=== PATIENT | female | born 1990 | race African-American/Black ===

== ENCOUNTER 2018-09-19 09:17 | Inpatient (IN) ==
[2018-09-19 10:22] LABS: Apearance,Urine CLOUDY (Clear); Bilirubin,Urine Negative (Negative); Blood, Urine Negative (Negative); Glucose,Urine (UA) Negative (Negative); Ketones,Urine Negative (Negative); Mucus,Urine Many /LPF (Occasional); Nitrite,Urine Negative (Negative); Protein,Urine 30 MG/DL; RBC,Urine 12 /HPF (0-4); Squamous Epithelial Cell,Urine Few /HPF (0-10); Urine Color Amber (Yellow); Urine Specific Gravity 1.017 (1.001-1.035); WBC,Urine 162 /HPF (0-6)
[2018-09-19] MEDS: BETAMETH SODIUM PHOS/ACETATE 30 MG/5 ML VIAL IM SCH (10:58)
[2018-09-19] MEDS ORDERED: BUTORPHANOL 2 MG/ML VIAL IV PRN (13:42)
[2018-09-19] MEDS ORDERED: MAGNESIUM SULF RIDER 100 ML IV ONE (13:44)
[2018-09-19] MEDS: LACTATED RINGERS 1,000 ML IV SCH (14:34)
[2018-09-19 14:35] LABS: Basophils % 0.1 % (0.0-0.8); Eosinophils # 0.2 10*3/uL (0.0-0.87); Eosinophils % 1.7 % (0.00-10.9); Hematocrit 38.5 VOL% (35.7-47.0); Immature Granulocytes % 0.4 %; Immature Granulocytes Absolute 0.04 #; Lymphocytes # 1.3 10*3/uL (1.4-4.0); Lymphocytes % 13.2 % (21.3-54.2); Mean Corpuscular HGB Conc 31.2 GM/DL (32-36); Mean Corpuscular Hemoglobin 30 PG (27-34); Mean Platelet Volume 9.5 FL (9.6-12.0); Monocytes # 0.2 10*3/uL (0.11-0.8); Monocytes % 1.9 % (1.7-12.7); Neutrophils # 7.9 10*3/uL (1.4-7.4); Neutrophils % 82.7 % (38.7-73.9); Platelet Count 322 T/CUMM (130-400); Red Blood Count 4.01 MC/CUMM (3.8-5.5); Red Cell Distribution Width 12.5 % (9.3-17.3); White Blood Count 9.6 T/CUMM (4-12)
[2018-09-19] MEDS: AMPICILLIN INJ 2,000 MG in SODIUM CHLORIDE 0.9% 100 ML IV SCH ×2 (15:08→21:20)
[2018-09-19] MEDS: MAGNESIUM SULF DRIP 40 GM/1,000 ML ML IV SCH (15:11)
[2018-09-19 15:31] LABS: Apearance,Urine CLEAR (Clear); Bilirubin,Urine Negative (Negative); Blood, Urine Negative (Negative); Glucose,Urine (UA) Negative (Negative); Ketones,Urine 20 mg/dL (Negative); Nitrite,Urine Negative (Negative); Protein,Urine Negative; Urine Color Straw (Yellow); Urine Specific Gravity 1.005 (1.001-1.035); Urine Urobilinogen < 2.0 EU/DL (0.2-1.0); WBC,Urine 3 /HPF (0-6)
[2018-09-19] MEDS: ONDANSETRON 4 MG/2 ML VIAL IV PRN (17:06)
[2018-09-19] MEDS: MEPERIDINE 50 MG/1 ML VIAL IV PRN (17:10)
[2018-09-20] MEDS: LACTATED RINGERS 1,000 ML IV SCH ×2 (03:30→19:00)
[2018-09-20] MEDS: AMPICILLIN INJ 2,000 MG in SODIUM CHLORIDE 0.9% 100 ML IV SCH ×3 (03:30→15:46)
[2018-09-20] MEDS: ONDANSETRON 4 MG/2 ML VIAL IV PRN (03:45)
[2018-09-20] MEDS: MEPERIDINE 50 MG/1 ML VIAL IV PRN (03:47)
[2018-09-20] MEDS: MAGNESIUM SULF DRIP 40 GM/1,000 ML ML IV SCH (10:28)
[2018-09-20] MEDS: BETAMETH SODIUM PHOS/ACETATE 30 MG/5 ML VIAL IM SCH (11:35)
[2018-09-20] MEDS: NIFEdipine 10 MG CAPSULE PO SCH ×3 (14:04→22:00)
[2018-09-20] MEDS: NITROFURANTOIN MACRO/MONO 100 MG CAPSULE PO SCH (21:10)
[2018-09-20] MEDS ORDERED: ACETAMINOPHEN 325 MG TABLET PO ONE (21:50)
[2018-09-21] MEDS: NIFEdipine 10 MG CAPSULE PO SCH ×3 (02:10→09:07)
[2018-09-21] MEDS ORDERED: ALUMINUM/MAGNES/SIMETH MAX STR 30 ML UDCUP PO PRN (08:42)
[2018-09-21] MEDS: NITROFURANTOIN MACRO/MONO 100 MG CAPSULE PO SCH (09:06)
== END 2018-09-21 09:25 | disposition home or self-care (01) | DRG 832 ==
LOC: N.LDOUT 09:17 → N.LD 14:09
PROVIDERS: ADMIT Obstetrics & Gynecology; ATTEND Obstetrics & Gynecology

== ENCOUNTER 2018-10-23 00:44 | Inpatient (IN) ==
[2018-10-23] MEDS ORDERED: LACTATED RINGERS 1,000 ML IV ONE ×2 (01:08→06:30)
[2018-10-23 01:12] LABS: Apearance,Urine CLEAR (Clear); Bacteria,Urine Occasional /HPF (Few); Bilirubin,Urine Negative (Negative); Blood, Urine Small mg/dL (Negative); Glucose,Urine (UA) Negative (Negative); Ketones,Urine Negative (Negative); Mucus,Urine Occasional /LPF (Occasional); Nitrite,Urine Negative (Negative); Protein,Urine Negative; RBC,Urine 10 /HPF (0-4); Squamous Epithelial Cell,Urine Occasional /HPF (0-10); Urine Color Yellow (Yellow); Urine Specific Gravity 1.011 (1.001-1.035); Urine Urobilinogen < 2.0 EU/DL (0.2-1.0); WBC,Urine 24 /HPF (0-6)
[2018-10-23] MEDS ORDERED: BUTORPHANOL 2 MG/ML VIAL ONE (01:29)
[2018-10-23] MEDS ORDERED: ONDANSETRON 4 MG/2 ML VIAL ONE (01:30)
[2018-10-23] MEDS ORDERED: ONDANSETRON 4 MG/2 ML VIAL IV ONE (01:32)
[2018-10-23] MEDS ORDERED: BUTORPHANOL 2 MG/ML VIAL IV ONE (01:32)
[2018-10-23] MEDS ORDERED: FAMOTIDINE 20 MG/2 ML VIAL IV ONE (01:44)
[2018-10-23] MEDS ORDERED: ceFAZolin 3,000 MG in SYRINGE 1 EACH IV ONE (01:44)
[2018-10-23] MEDS ORDERED: CITRIC ACID/SODIUM CITRATE 30 ML UDCUP PO ONE (01:44)
[2018-10-23] MEDS ORDERED: OXYTOCIN/LR 20 UNIT/1,000 ML BAG IV ONE ×2 (01:47→06:10)
[2018-10-23] MEDS ORDERED: LACTATED RINGERS 1,000 ML IV SCH ×2 (02:00→06:30)
[2018-10-23 02:13] LABS: Basophils % 0.1 % (0.0-0.8); Eosinophils # 0.5 10*3/uL (0.0-0.87); Eosinophils % 5.7 % (0.00-10.9); Hematocrit 33.2 VOL% (35.7-47.0); Hemoglobin 10.4 GM/DL (12.0-16.0); Immature Granulocytes % 0.6 %; Immature Granulocytes Absolute 0.05 #; Lymphocytes # 2.8 10*3/uL (1.4-4.0); Mean Corpuscular HGB Conc 31.3 GM/DL (32-36); Mean Corpuscular Hemoglobin 30 PG (27-34); Mean Corpuscular Volume 95.7 FL (87-102); Mean Platelet Volume 9.6 FL (9.6-12.0); Monocytes # 0.7 10*3/uL (0.11-0.8); Monocytes % 9.1 % (1.7-12.7); Neutrophils % 49.5 % (38.7-73.9); Platelet Count 278 T/CUMM (130-400); Red Blood Count 3.47 MC/CUMM (3.8-5.5); Red Cell Distribution Width 12.6 % (9.3-17.3); White Blood Count 8.1 T/CUMM (4-12)
[2018-10-23 02:32] LABS: Alanine Aminotransferase 11 U/L (13-56); Albumin 2.4 G/DL (3.4-5.0); Alkaline Phosphatase 200 U/L (45-117); Aspartate Amino Transferase 9 U/L (0-37); Bilirubin,Total < 0.39 MG/DL (0.2-1.0); Blood Urea Nitrogen 6 MG/DL (7-18); Calcium 8.1 MG/DL (8.5-10.1); Glucose 94 MG/DL (74-106); Osmolality,Calculated 276.4 MOS/KG (273-304); Potassium 3.9 MMOL/L (3.5-5.1); Sodium 140 MMOL/L (136-145); Total Protein 6.3 G/DL (6.4-8.3)
[2018-10-23] MEDS ORDERED: TRANEXAMIC ACID 1,000 MG/10 ML VIAL ONE (02:43)
[2018-10-23] MEDS ORDERED: miSOPROStol 200 MCG TABLET ONE (02:43)
[2018-10-23] MEDS ORDERED: METHYLERGONOVINE 0.2 MG/1 ML AMP ONE (02:44)
[2018-10-23] MEDS ORDERED: RHO(D) IMMUNE GLOBULIN 300 MCG SYRINGE IM ONE (06:10)
[2018-10-23] MEDS ORDERED: ONDANSETRON 4 MG/2 ML VIAL IV PRN (06:10)
[2018-10-23] MEDS ORDERED: ACETAMINOPHEN 325 MG TABLET PO PRN (06:10)
[2018-10-23] MEDS ORDERED: MORPHINE 10 MG/10 ML VIAL ONE (06:21)
[2018-10-23] MEDS ORDERED: PHENYLEPHRINE 1 MG/10 ML SYRINGE IV ONE (06:21)
[2018-10-23] MEDS ORDERED: DEXAMETHASONE 4 MG/1 ML VIAL ONE (06:22)
[2018-10-23] MEDS ORDERED: BUPIVACAINE SPINAL 0.75% 2 ML AMP SPINAL ONE (06:26)
[2018-10-23] MEDS ORDERED: PROMETHAZINE 25 MG/1 ML VIAL IM ONE (08:07)
[2018-10-23] MEDS ORDERED: ceFAZolin 1,000 MG in SYRINGE 1 EACH IV SCH ×2 (09:00→22:30)
[2018-10-23 14:34] LABS: Basophils % 0.2 % (0.0-0.8); Eosinophils % 0.3 % (0.00-10.9); Hematocrit 35.7 VOL% (35.7-47.0); Hemoglobin 11.3 GM/DL (12.0-16.0); Immature Granulocytes % 0.7 %; Immature Granulocytes Absolute 0.08 #; Lymphocytes # 1.8 10*3/uL (1.4-4.0); Lymphocytes % 15.3 % (21.3-54.2); Mean Corpuscular HGB Conc 31.7 GM/DL (32-36); Mean Corpuscular Hemoglobin 30 PG (27-34); Mean Corpuscular Volume 94.4 FL (87-102); Mean Platelet Volume 9.7 FL (9.6-12.0); Monocytes # 0.7 10*3/uL (0.11-0.8); Monocytes % 6.1 % (1.7-12.7); Neutrophils # 9.2 10*3/uL (1.4-7.4); Neutrophils % 77.4 % (38.7-73.9); Platelet Count 280 T/CUMM (130-400); Red Blood Count 3.78 MC/CUMM (3.8-5.5); Red Cell Distribution Width 12.3 % (9.3-17.3); White Blood Count 11.8 T/CUMM (4-12)
[2018-10-23] MEDS: IBUPROFEN 800 MG TABLET PO PRN (19:46)
[2018-10-23] MEDS: DOCUSATE SODIUM 100 MG CAPSULE PO SCH (20:01)
[2018-10-24 05:45] LABS: Basophils % 0.1 % (0.0-0.8); Eosinophils # 0.3 10*3/uL (0.0-0.87); Eosinophils % 2.2 % (0.00-10.9); Hematocrit 31.1 VOL% (35.7-47.0); Hemoglobin 9.8 GM/DL (12.0-16.0); Immature Granulocytes % 0.6 %; Immature Granulocytes Absolute 0.07 #; Lymphocytes # 3.4 10*3/uL (1.4-4.0); Lymphocytes % 29.6 % (21.3-54.2); Mean Corpuscular HGB Conc 31.5 GM/DL (32-36); Mean Corpuscular Hemoglobin 30 PG (27-34); Mean Corpuscular Volume 94.5 FL (87-102); Mean Platelet Volume 9.8 FL (9.6-12.0); Monocytes % 9.1 % (1.7-12.7); Neutrophils # 6.7 10*3/uL (1.4-7.4); Neutrophils % 58.4 % (38.7-73.9); Platelet Count 255 T/CUMM (130-400); Red Blood Count 3.29 MC/CUMM (3.8-5.5); Red Cell Distribution Width 12.4 % (9.3-17.3); White Blood Count 11.4 T/CUMM (4-12)
[2018-10-24] MEDS: MAGNESIUM HYDROXIDE SUSP 30 ML UDCUP PO PRN ×2 (09:23→21:31)
[2018-10-24] MEDS: SIMETHICONE CHEW 80 MG TABLET PO PRN (09:23)
[2018-10-24] MEDS: DOCUSATE SODIUM 100 MG CAPSULE PO SCH ×3 (09:23→21:31)
[2018-10-24] MEDS: MULTIVITAMIN (PRENATAL) TABLET PO SCH ×2 (09:24→09:27)
[2018-10-24] MEDS: IBUPROFEN 800 MG TABLET PO PRN ×2 (10:29→23:07)
[2018-10-25] MEDS: SIMETHICONE CHEW 80 MG TABLET PO PRN (00:13)
[2018-10-25] MEDS: MAGNESIUM HYDROXIDE SUSP 30 ML UDCUP PO PRN (08:10)
[2018-10-25] MEDS: DOCUSATE SODIUM 100 MG CAPSULE PO SCH ×2 (08:10→20:36)
[2018-10-25] MEDS: MULTIVITAMIN (PRENATAL) TABLET PO SCH (08:10)
[2018-10-25] MEDS: IBUPROFEN 800 MG TABLET PO PRN (13:25)
[2018-10-26 07:15] VITALS: BP 148/72
[2018-10-26] MEDS: MULTIVITAMIN (PRENATAL) TABLET PO SCH (09:10)
[2018-10-26] MEDS: DOCUSATE SODIUM 100 MG CAPSULE PO SCH (09:11)
[2018-10-26] MEDS ORDERED: MEASLES/MUMPS/RUBELLA VACCINE 0.5 ML VIAL SUBCUT ONE (11:40)
== END 2018-10-26 12:30 | disposition home or self-care (01) | DRG 788 ==
LOC: N.LDOUT 00:44 → N.LD 00:46 → N.OB 10:58
PROVIDERS: ADMIT Obstetrics & Gynecology; ATTEND Obstetrics & Gynecology